=== PATIENT | male | born 1990 | race African-American/Black ===

== ENCOUNTER 2019-02-05 08:35 | Emergency (ER) | payer SELFPAY ==
[~2019-02-05] VITALS: Ht 172.7 cm; Wt 97.3 kg
--- NOTE | 2019-02-05 09:08 | NUR ---
28 Y/O MALE PRESENTS TO ED WITH C/O N/V. "I'VE BEEN THROWING UP SINCE ABOUT 0200. I HAD A FEW DRINKS LAST NIGHT THAT WAS IT. I HAVE SOME ABDOMINAL PAIN." PT ACTIVELY VOMITING. PT PLACED ON CONT PULSE OX,NIBP, WASTE WATER OR WATER PLANT OPERATOR.
[2019-02-05] MEDS ORDERED: ONDANSETRON 2MG/ML, 2ML ONE (09:28)
[2019-02-05] MEDS ORDERED: MORPHINE SULFATE 4 MG/ML, 1ML ONE ×2 (09:29→10:40)
[2019-02-05] MEDS ORDERED: ONDANSETRON 2MG/ML, 2ML IVPush ONE (09:30)
[2019-02-05] MEDS ORDERED: SODIUM CHLORIDE 0.9% 1,000ML IVBOLUS ONE ×2 (09:30→10:30)
[2019-02-05] MEDS ORDERED: SODIUM CHLORIDE FLUSH 10ML SYR IVF ONE (09:30)
[2019-02-05] MEDS: MORPHINE SULFATE 4 MG/ML, 1ML IVPush PRN ×2 (09:41→10:42)
[2019-02-05 10:01] LABS: ALANINE AMINOTRANSFERASE 37 U/L (12-78); ALBUMIN 4.7 g/dL (3.4-5.0); ANION GAP 11 mmol/L (5-15); CALCIUM 9.5 mg/dL (8.5-10.1); CHLORIDE 108 mmol/L (98-107); CREATININE 1.17 mg/dL (0.7-1.3)
[2019-02-05 10:09] LABS: MEAN CORPUSCULAR HEMOGLOBIN 31.3 pg (27.5-34.5); MEAN PLATELET VOLUME 9.2 fL (7.4-10.4); PLATELET COUNT 231 x10^3/uL (130-400); RED BLOOD COUNT 4.61 x10^6/uL (4.38-5.82); RED CELL DISTRIBUTION WIDTH 13.1 % (9.4-14.8)
[2019-02-05 10:11] LABS: ALKALINE PHOSPHATASE 78 U/L (45-117); BILIRUBIN,TOTAL 0.9 mg/dL (0.2-1.0); TOTAL PROTEIN 8.9 g/dL (6.4-8.2)
[2019-02-05 10:18] LABS: BASOPHILS # (AUTO) 0.01 x10^3/uL (0-0.1); BASOPHILS % (AUTO) 0 % (0-1); EOSINOPHILS % (AUTO) 0 % (1-7); LYMPHOCYTES % (AUTO) 17 % (22-44); MD SCAN; MONOCYTES # (AUTO) 0.29 x10^3/uL (0.2-0.8); MONOCYTES % (AUTO) 4 % (2-9); NEUTROPHILS # (AUTO) 5.68 x10^3/uL (1.8-6.8); NEUTROPHILS % (AUTO) 79 % (42-75)
--- NOTE | 2019-02-05 10:27 | NUR ---
CT WAITING FOR NEW IV
[2019-02-05] MEDS ORDERED: POTASSIUM CHLORIDE 20 MEQ TAB.ER.PRT PO ONE (10:30)
[2019-02-05] MEDS ORDERED: PROMETHAZINE 25 MG/ML, 1ML ONE (10:46)
--- NOTE | 2019-02-05 10:53 | NUR ---
NEEDS MEDS FOR VOMITING BEFORE CT
[2019-02-05] MEDS ORDERED: PROMETHAZINE 25 MG/ML, 1ML IM ONE (11:00)
--- NOTE | 2019-02-05 11:00 | NUR ---
LATE ENTRY FOR 1020: PIV LFET SIDE INFILTRATED. NEW PIV ESTABLISHED FOR CT AND MEDICATIONS. PT TOLERATED WITH NO COMPLICATIONS. SISTERS BEDSIDE.
--- NOTE | 2019-02-05 11:00 | NUR ---
PT GIVEN IM PHENERGAN FOR VOMITING. PT NOW BEING TAKEN TO IMAGING.
[2019-02-05] MEDS ORDERED: OMNIPAQUE 350 MG/ML, 100ML BOTTLE ONE (11:17)
--- NOTE | 2019-02-05 11:20 | NUR ---
PT BACK FROM IMAGING.
[2019-02-05] MEDS ORDERED: POTASSIUM CHLORIDE 20 MEQ TAB.ER.PRT ONE (11:40)
--- NOTE | 2019-02-05 12:09 | NUR ---
PT WAS ABLE TO KEEP DOWN FLUIDS. NO ACUTE DISTRESS NOTED. PT VERBALIZED UNDERSTANDING REGARDING POC. NO NEEDS REQUESTED AT THIS TIME. SISTER BEDSIDE.
--- NOTE | 2019-02-05 12:14 | NUR ---
BEDSIDE REPORT TO ALVARADO LEMON
[2019-02-05 12:36] VITALS: BP 161/96
--- NOTE | 2019-02-05 12:36 | NUR ---
PATIENT TOLERATED PO CHALLENGE, PROVIDED DC PAPERWORK. FAMILY AWARE OF PLAN. ALL INSTRUCTIONS VERBALIZED UNDERSTANDING
== END 2019-02-05 12:38 | disposition home or self-care (01) ==
LOC: ED 12:32
DX: A08.39 Other viral enteritis (principal); E87.6 Hypokalemia; R19.7 Diarrhea, unspecified; R11.10 Vomiting, unspecified
CPT/HCPCS: 36415; 74177; 80053; 83605; 85025; 96361; 96372; 96374; 96375; 96376; 99284; J2405; J2550; J7030; Q9967